=== PATIENT | female | born 1960 | race Caucasian/White ===

== ENCOUNTER 2020-05-28 08:44 | Outpatient (CLI) | payer OTHER, SELFPAY ==
--- NOTE | ~2020-05-28 | MM_ITS ---
EXAMINATION: MM screening [facility] w adelita HISTORY: Screening TECHNIQUE: Craniocaudal and mediolateral oblique 3-D tomosynthesis images were obtained and synthetic 2-D images were generated. CAD analysis was submitted and interpreted. COMPARISON: No prior mammogram is available for comparison at this institution. BREAST PARENCHYMAL COMPOSITION: FINDINGS: There is no evidence of suspicious mass, calcification, or architectural distortion to sugg est malignancy in either breast. There has been no suspicious interval change. IMPRESSION: 1. No mammographic evidence of malignancy. 2. Recommend routine screening mammography in one year. Reviewed, dictated and finalized at location A.
== END 2020-05-28 08:45 | disposition home or self-care (01) ==
LOC: ANHIMG 08:47
PROVIDERS: PCP Family Medicine; Visit Provider Family Medicine
DX: Z12.31 Encounter for screening mammogram for malignant neoplasm of breast (principal)
CPT/HCPCS: 77063; 77067

== ENCOUNTER 2021-06-09 08:04 | Outpatient (CLI) | payer OTHER, SELFPAY ==
--- NOTE | ~2021-06-09 | MM_ITS ---
EXAMINATION: MM screening [facility] BI w adelita HISTORY: Screening mammogram TECHNIQUE: Craniocaudal and mediolateral oblique 3-D tomosynthesis images were obtained and synthetic 2-D images were generated. CAD analysis was submitted and interpreted. COMPARISON: 05/28/2020 bilateral digital screening mammogram 05/17/2019 diagnostic right mammogram 05/11/2019, 01/26/2018 bilateral digital screening mammogram examinations BREAST PARENCHYMAL COMPOSITION: There are scattered areas of fibroglandular density. FINDINGS: Stable mild fibroglandular asymmetry. There is no evidence of suspicious mass, calcificatio n, or architectural distortion to suggest malignancy in either breast. There has been no suspicious i nterval change. IMPRESSION: 1. No mammographic evidence of malignancy. 2. Recommend routine screening mammography in one year. BI-RADS Category 2: Benign finding(s). Reviewed, dictated and finalized at location A.
== END 2021-06-09 08:05 | disposition home or self-care (01) ==
PROVIDERS: PCP Family Medicine; Visit Provider Physician Assistant
DX: Z12.31 Encounter for screening mammogram for malignant neoplasm of breast (principal)
CPT/HCPCS: 77063; 77067

== ENCOUNTER 2022-09-08 08:30 | Outpatient (CLI) | payer OTHER, SELFPAY ==
--- NOTE | ~2022-09-08 | MM_ITS ---
EXAMINATION: MM screening [facility] BI w adelita HISTORY: Screening mammogram TECHNIQUE: Craniocaudal and mediolateral oblique 3-D tomosynthesis images were obtained and synthetic 2-D images were generated. CAD analysis was submitted and interpreted. COMPARISON: 06/09/2021, 05/28/2020, 05/17/2019, 05/11/2019 BREAST PARENCHYMAL COMPOSITION: There are scattered areas of fibroglandular density. FINDINGS: No suspicious mass, calcification, or architectural distortion are identified in either reza ast to suggest malignancy. There has been no suspicious interval change. IMPRESSION: 1. No mammographic evidence of malignancy. 2. Recommend routine screening mammography in one year. BI-RADS Category 1: Negative Reviewed, dictated and finalized at location A. L PAINTER
== END 2022-09-08 08:31 | disposition home or self-care (01) ==
LOC: ANHIMG 08:31
PROVIDERS: PCP Family Medicine; Visit Provider Family Medicine
DX: Z12.31 Encounter for screening mammogram for malignant neoplasm of breast (principal)
CPT/HCPCS: 77063; 77067

== ENCOUNTER → 2022-10-13 13:45 | Outpatient (CLI) | payer OTHER, SELFPAY ==
--- NOTE | ~2022-10-13 | XR_ITS ---
EXAM: XR lumbar spine min 4V DATE: 10/13/2022 14:09 HISTORY: low back pain radiating down back of both legs . COMPARISON: None available. FINDINGS: Hypoplastic ribs at T12. 5 nonrib-bearing lumbar-type vertebral bodies. Partial sacralizat ion of L5. Pedicles intact. Normal vertebral body alignment. Vertebral body heights preserved. Disc s paces multilevel mild disc space narrowing and marginal osteophytosis. No pars defect. Multilevel fac et sclerosis and hypertrophy, worst at L4-5 and L5-S1. No fracture or dislocation. IMPRESSION: Partial sacralization of L5. Mild multilevel degenerative disc disease. Moderate lower roxy mbar facet arthropathy. Reviewed, dictated and finalized at location K. TREATING INSPECTOR IMPRESSION: Partial sacralization of L5. Mild multilevel degenerative disc dise ase. Moderate lower lumbar facet arthropathy.
== END ==
PROVIDERS: PCP Family Medicine; Visit Provider Family Medicine
DX: M51.36 Other intervertebral disc degeneration, lumbar region (principal)
CPT/HCPCS: 72110

== ENCOUNTER 2023-10-11 07:34 | Outpatient (CLI) | payer MEDICARE, SELFPAY ==
--- NOTE | ~2023-10-11 | MM_ITS ---
EXAMINATION: MM screening [facility] BI w adelita HISTORY: Screening TECHNIQUE: Craniocaudal and mediolateral oblique 3-D tomosynthesis images were obtained and synthetic 2-D images were generated. CAD analysis was submitted and interpreted. COMPARISON: Comparison to multiple prior studies sequentially, with oldest reviewed study dated 02/2018. BREAST PARENCHYMAL COMPOSITION: There are scattered areas of fibroglandular density. FINDINGS: Focal right breast asymmetry is unchanged from prior studies. There is no evidence of suspi cious mass, calcification, or architectural distortion to suggest malignancy in either breast. There has been no suspicious interval change. IMPRESSION: 1. No mammographic evidence of malignancy. 2. Recommend routine screening mammography in one year. BI-RADS Category 1: Negative Reviewed, dictated and finalized at location A. PICKER
== END 2023-10-11 07:35 | disposition home or self-care (01) ==
PROVIDERS: PCP Family Medicine; Visit Provider Family Medicine
DX: Z12.31 Encounter for screening mammogram for malignant neoplasm of breast (principal)
CPT/HCPCS: 77063; 77067

== ENCOUNTER 2024-07-26 09:52 | Outpatient (CLI) | payer MEDICARE, SELFPAY ==
[2024-07-26 12:59] LABS: Alanine Aminotransferase 25 U/L (6-35); Albumin Level 4.4 g/dL (3.5-5.1); Alkaline Phosphatase 69 U/L (38-126); Anion Gap 6 mmol/L (4-12); Aspartate Amino Transferase 41 U/L (14-36); Bilirubin,Total 0.9 mg/dL (0.2-1.3); Blood Urea Nitrogen 18 mg/dL (7-17); Calcium 9.5 mg/dL (8.4-10.2); Carbon Dioxide 30 mmol/L (22-30); Chloride 104 mmol/L (98-107); Cholesterol 220 mg/dL (0-200); Estimated Glomerular Filt Rate > 60; Glucose 94 mg/dL (65-110); HDL Direct 64 mg/dL; Potassium 4.6 mmol/L (3.4-5.0); Sodium 140 mmol/L (137-145); Triglycerides 82 mg/dL (<150)
[2024-07-26 13:10] LABS: LDL Cholesterol Direct 116 mg/dL
[2024-07-26 13:29] LABS: Thyroid Stimulating Hormone 0.604 uIU/mL (0.465-4.680)
== END 2024-07-26 09:53 | disposition home or self-care (01) ==
PROVIDERS: PCP Family Medicine; Visit Provider Student in an Organized Health Care Education/Training Program
DX: E03.9 Hypothyroidism, unspecified (principal)
CPT/HCPCS: 36415; 80053; 80061; 84443

== ENCOUNTER 2024-10-16 09:01 | Outpatient (CLI) | payer MEDICARE, SELFPAY ==
--- NOTE | ~2024-10-16 | DEXA_ITS ---
Bone Density Report Name: VALERIA CAM Age: 64 Sex: Female Ethnicity: White Date of : 1960 Indication: postmenopausal; screening for osteoporosis; Referring Provider: RODOLFO CHAO Study: Bone densitometry was performed. Exam Date: October 16, 2024 Accession number: [id number] Bone Density: Region BMD T-score Z-score Classification AP Spine(L1-L4) 1.214 1.5 3.4 Normal Femoral Neck (Left) 0.837 -0.1 1.5 Normal Total Hip (Left) 1.012 0.6 1.9 Normal Femoral Neck (Right) 0.826 -0.2 1.4 Normal Total Hip (Right) 0.916 -0.2 1.1 Normal Total Hip Mean 0.964 0.2 1.5 Normal World Health Organization criteria for BMD impression classify patients as: Normal (T-score at or above -1.0), Osteopenia (T-score between -1.0 and -2.5), or Osteoporosis (T-score at or below -2.5). 10-year Fracture Risk: FRAX not reported because: All T-scores for Spine Total, Hip Total, Femoral Neck at or above -1.0 Clinical Information Provided by Patient: Patient maximum height was 64.5 Menopause Age: 44 Drinks caffeinated beverages Onset of menses at age 11 Number of children 2 Impression: The patient has normal bone mass. Discussion: BONE DENSITY IS ABOVE THE MINIMUM DESIRABLE LEVEL AT ALL SKELETAL SITES TESTED. This patient?s bone mineral density is above the minimum desirable level (T-score -1.0 or better) at all sites measured. The patient should follow a healthful lifestyle (good nutrition with adequate calcium and vitamin D, and appropriate weight-bearing exercise). Follow-Up: Consider repeating this study in 5 years or sooner if there is some new clinical indication. Reported by: KARSTEN on 10/16/2024 9:48:00 AM. Reviewed, dictated and finalized at location A. [facility]
--- NOTE | ~2024-10-16 | MM_ITS ---
EXAMINATION: MM screening [facility] BI w adelita HISTORY: Screening mammogram TECHNIQUE: Craniocaudal and mediolateral oblique 3-D tomosynthesis images were obtained and synthetic 2-D images were generated. CAD analysis was submitted and interpreted. COMPARISON: 10/11/2023, 09/08/2022, 06/09/2021 BREAST PARENCHYMAL COMPOSITION:Not Dense. There are scattered areas of fibroglandular density. FINDINGS: No suspicious mass, calcification, or architectural distortion are identified in either reza ast to suggest malignancy. There has been no suspicious interval change. IMPRESSION: No mammographic evidence of malignancy. Recommend routine screening mammography in one year. BI-RADS Category 1: Negative Reviewed, dictated and finalized at location . L ARBITRATOR
--- OUTSIDE RECORDS SUMMARY | 2024-10-16 09:43 | XMS_ITS | Clinical Summary ---
Author Organization [facility] Address [address] [address] Care Team Providers Care Triple Drum Operator Name Role Phone Krystina Maria MD Primary Care Provider + Allergies Active Allergy Reactions Criticality Noted Date Comments Doxycycline Hives Medium 12/22/2021 Penicillins Other (See comments) High 12/22/2021 Throat swelled Medications sodium, potassium & mag sulfates (SUPREP BOWEL KIT) 17.5-3.13-1.6 gram recon solnIndications :Bowel Evacuation Take half of prep day before procedure at 6pm with clear liquids, take second half of prep day of procedure four hours prior to leaving home 2 Bottle 9 Active Additional Information Patient not taking.Reported on 12/22/2021 levothyroxine (SYNTHROID) 75 mcg tablet daily 3 9 Active Active Problems Problem Noted Date Diagnosed Date Encounter for screening colonoscopy 05/24/2019 Overview (05/24/2019): Added automatically from request for surgery [id number] Social History Tobacco Use Types Packs/Day Years Used Date Smoking Tobacco: Never Personal Safety Answer Date Recorded Getting School Help Needed Not on file 08/21 Comments No Sex and Gender Information Value Date Recorded Sex Assigned at Not on file 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 Gender Identity Not on file Sexual Orientation Not on file Obstetrics History Last Filed Vital Signs Vital Sign Reading Time Taken Comments Blood Pressure 144/81 12/22/2021 9:05 AM CDT Pulse 70 12/22/2021 9:05 AM CDT Temperature 37.1 C (98.8 F) 12/22/2021 9:05 AM CDT Respiratory Rate 16 12/22/2021 9:05 AM CDT Oxygen Saturation 98% 12/22/2021 9:05 AM CDT Inhaled Oxygen Concentration - - Weight 68.5 kg (151 lb) 12/22/2021 9:05 AM CDT Height 162.6 cm (5' 4 ) 12/22/2021 9:05 AM CDT Body Mass Index 25.92 12/22/2021 9:05 AM CDT Plan of Treatment Health Maintenance Due Date Last Done Comments Breast Cancer Screening-Mammogram 1960 Depression Screening 1960 Fall Risk Assessment 1960 Hepatitis C Screening 1960 Osteoporosis Screening-Bone Density Scan 1960 DTaP/Tdap/Td Vaccine (1 - Tdap) 1969 Hepatitis B Screening 1976 Pneumococcal vaccine 65+ (1 of 1 - PCV) 2008 Zoster Vaccine (2 of 2) 12/10/2021 10/15/2021 Well Visit 65+ 2023 Covid-19 Vaccine (4 - 2023-2 5 season) 2024 07/09/2021, 11/12/2020, 10/21/2020 Influenza Vaccine (#1) 2024 Colon Cancer Screening-Colonoscopy 06/14/20292018 Colon Cancer Screening-CT Colonography Discontinued 06/14/2019 Colon Cancer Screening-DNA Stool Discontinued 06/14/20 Colon Cancer Screening-FIT Discontinued 06/14/2019 Colon Cancer Screening-Sigmoidoscopy Discontinued 05/23 Procedures Procedure Name Priority Date/Time Associated Diagnosis Comments COLONOSCOPY 06/14/2019 10:15 AM CDT from Last 3 Months or Most Recently Relevant to Health Maintenance Results * COLONOSCOPY (06/14/2019 10:15 AM CDT) Anatomical Region Laterality Modality Other Narrative Procedure Note Oleksandr Collins MD - 06/14/2019 10:15 AM CDT ENDOSCOPY LAB Patient Name: Frances Mays Procedure Date: 06/14/2019 10:15AM Date of : 1960 Admit Type: Outpatient Age: 58 Gender: Female Attending MD: Oleksandr Collins M.D. Room: [facility] 02 Note Status: Finalized Procedure: Colonoscopy Indications: Screening for colorectal malignant neoplasm (last colonoscopy was 10 years ago) Providers: Oleksandr Collins M.D. Referring MD: Oleksandr Collins M.D. Medicines: Monitored Anesthesia Care Complications: No immediate complications. Estimated Blood Loss: Estimated blood loss: none. Procedure: Pre-Anesthesia Assessment: - Immediately prior to administration of medications,the patient was re-assessed for adequacy to receivesedatives. The benefits, risks and alternatives of the procedureand sedation were discussed and informed consent wasobtained. All questions were answered. Please refer to the signed informed consent document in the medical record. Thescope was passed under direct vision. The [id number] introduced through the anus and advanced to the cecum, identified by appendiceal orifice and ileocecal valve.The quality of the bowel preparation was evaluated usingthe BBPS ([place] Bowel Preparation Scale) with scores of: Right Colon = 3, Transverse Colon = 3 and Left Colon =3 (entire mucosa seen well with no residual staining,small fragments of stool or opaque liquid). The total BBPSscore equals 9. The bowel preparation used was SUPREP. Bowel prep was administered using a split dose. Findings: The perianal and digital rectal examinations were normal. A 3 mm polyp was found in the recto-sigmoid colon. The polyp was sessile. The polyp was removed with a hot snare. Resection andretrieval were complete. The exam was otherwise without abnormality. Impression: - One 3 mm polyp at the recto-sigmoid colon, removedwith a hot snare. Resected and retrieved. - The examination was otherwise normal. Recommendation: - Await pathology results. - Repeat colonoscopy in 10 years for surveillance. Oleksandr Collins MD Oleksandr Collins M.D. 06/14/2019 11:01:34 AM Number of Addenda: 0 Note Initiated On: 06/14/2019 10:15 AM Oleksandr Collins MD ENDOSCOPY PROCEDURES Fi nal Result from Last 3 Months or Most Recently Relevant to Health Maintenance Insurance [employer] [facility] [id number] Advance Directives For more information, please contact: [phone] * Full Code (Latest Code Status on File) Date Activated Date Inactivated Comments 06/14/2019 9:33 AM 06/14/2019 3:34 PM Care Teams Triple Drum Operator Relationship Specialty Start Date End Date Krystina Maria MD PCP - General 06/14/19
--- OUTSIDE RECORDS SUMMARY | 2024-10-16 09:43 | XMS_ITS | Referral Summary ---
Author Organization 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 Room: [facility] 02 Note Status: Finalized Procedure: Colonoscopy Indications: [...] Thescope was passed under direct vision. The [id number] introduced through the anus and advanced to the cecum, identified by appendiceal orifice and ileocecal valve.The quality of the bowel preparation was evaluated usingthe BBPS ([place] Bowel Preparation Scale) with scores of: Right [...] Most Recently Relevant to Health Maintenance Insurance [facility] [id number] Advance Directives For more information, please contact: [phone] * Full Code (Latest Code Status on File) Date Activated Date Inactivated Comments 06/14/2019 9:33 AM 06/14/2019 3:34 PM Care Teams Pricing Associate Relationship Specialty Start Date End Date Krystina Maria MD PCP - General 06/14/19
== END 2024-10-16 09:02 | disposition home or self-care (01) ==
PROVIDERS: PCP Family Medicine; Visit Provider Student in an Organized Health Care Education/Training Program
DX: Z12.31 Encounter for screening mammogram for malignant neoplasm of breast (principal); Z78.0 Asymptomatic menopausal state
CPT/HCPCS: 77063; 77067; 77080

== ENCOUNTER 2025-07-23 15:25 | Outpatient (CLI) | payer MEDICARE, SELFPAY ==
--- NOTE | ~2025-07-23 | CT_ITS ---
EXAMINATION: CT sinus wo con COMPARISON: None HISTORY: Chronic sinusitis TECHNIQUE: Axial images were obtained without IV contrast. Sagittal, coronal reconstruction images were obtained from the axial views. CT scan performed using dose optimization techniques including the following automated exposure control; adjustment of mA and/or kV; use of iterative reconstruction technique. Automatic exposure control was used to reduce radiation dose. Permanent radiation dose record is archived to PACS. FINDINGS: Visualized brain parenchyma optic globes and soft tissues are unremarkable. Nonspecific calcification noted in the tonsillar tissue. Frontal sinuses unremarkable. Minimal mucosal thickening in the ethmoidal air cells. Maxillary sinuses and sphenoid sinuses unremarkable. The ostiomeatal complexes are patent but narrowed on the left side. Nasal septum is deviated to the left with mild thickening of the turbinates and mild narrowing of the left nasal cavity. There is no osseous destruction or wall thickening identified. IMPRESSION: No significant sinusitis. Reviewed, dictated and finalized at location P. DOWN INSPECTOR IMPRESSION: No significant sinusitis.
== END 2025-07-23 15:26 | disposition home or self-care (01) ==
LOC: MICIMG 15:26
PROVIDERS: PCP Family Medicine; Visit Provider Family Medicine
DX: J32.9 Chronic sinusitis, unspecified (principal); R51.9 Headache, unspecified
CPT/HCPCS: 70486

== ENCOUNTER 2025-07-25 08:08 | Outpatient (CLI) | payer MEDICARE, SELFPAY ==
--- OUTSIDE RECORDS SUMMARY | 2025-07-25 08:17 | XMS_ITS | Clinical Summary ---
Author Organization [facility] Address [address] [place] [address] Care Team Providers Care Senior Project Controls Specialist Name Role Phone Krystina Maria MD Primary [...] Active Additional Information Patient not taking.Reported on 12/14/2024 levothyroxine (SYNTHROID) 75 mcg tablet daily 3 9 Active latanoprost (XALATAN) 0.005 % ophthalmic solution INSTILL 1 DROP IN BOTH EYES ONCE DAILY AT BEDTIME 5 Active Active Problems Problem Noted Date Diagnosed Date Encounter for screening colonoscopy 05/24/2019 Overview (05/24/2019): Added automatically from request for surgery [id number] Social History Tobacco Use Types Packs/Day Years Used Date Smoking Tobacco: Never Comments No Sex and Gender Information Value Date Recorded Sex Assigned at Not on file 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 Gender Identity Not on file Sexual Orientation Not on file Last Filed Vital Signs Vital Sign Reading Time Taken Comments Blood Pressure 126/80 12/14/2024 8:20 AM CDT Pulse 85 12/14/2024 8:20 AM CDT Temperature 36.8 C (98.2 F) 12/14/2024 8:20 AM CDT Respiratory Rate 18 12/14/2024 8:20 AM CDT Oxygen Saturation 98% 12/14/2024 8:20 AM CDT Inhaled Oxygen Concentration - - Weight 69.9 kg (154 lb) 12/14/2024 8:20 AM CDT Height 162.6 cm (5' 4) 12/22/2021 9:05 AM CDT Body Mass Index 26.43 12/22/2021 9:05 AM CDT Plan of Treatment [...] Visit 65+ 2023 Covid-19 Vaccine (4 - 2024-2 6 season) 2025 07/09/2021, 11/12/2020, 10/21/2020 Influenza Vaccine (#1) 2025 Colon Cancer Screening-Colonoscopy 06/14/20292018 Colon Cancer Screening-CT [...] Female Attending MD: Oleksandr Collins M.D. Room: [place] [id number] Note Status: Finalized Procedure: Colonoscopy Indications: Screening [...] Thescope was passed under direct vision. The [id number] introduced through the anus and advanced to the cecum, identified by appendiceal orifice and ileocecal valve.The quality of the bowel preparation was evaluated usingthe BBPS ([place] Bowel Preparation Scale) with scores of: Right [...] Most Recently Relevant to Health Maintenance Insurance [employer] [facility] MEDIC[facility] [employer] [facility] Address: [address] [address] [place] [address] [employer] [facility] [id number] [facility] MEDICARE ADVANTAGE Advance Directives For more information, please contact: [phone] * Full Code (Latest Code Status on File) Date Activated Date Inactivated Comments 06/14/2019 9:33 AM 06/14/2019 3:34 PM Care Teams Senior Project Controls Specialist Relationship Specialty Start Date End Date Krystina Maria MD PCP - General 06/14/19
[2025-07-25 14:23] LABS: Hematocrit 42.2 % (37.0-47.0); Hemoglobin 13.8 g/dL (12.0-15.0); Immature Granulocyte Percent A 0.2 % (0-0.5); Lymphocytes Absolute Auto 1.77 K/mm3 (0.9-3.2); Mean Corpuscular HGB Conc 32.7 g/dl (32-36); Mean Corpuscular Hemoglobin 31.1 pg (26-34); Mean Corpuscular Volume 95.0 fl (80-100); Nucleated Red Blood Cells Absolute Auto 0.000 K/mm3 (0.0-0.012); Nucleated Red Blood Cells Perc 0.0 % (0.0-0.2); Platelet Count Result 330 k/mm3 (150-375); Red Blood Count 4.44 M/mm3 (4.2-5.4); White Blood Count 5.6 K/mm3 (4.5-10.0)
[2025-07-25 14:29] LABS: Alanine Aminotransferase 22 U/L (6-35); Albumin Level 4.2 g/dL (3.5-5.1); Alkaline Phosphatase 64 U/L (38-126); Anion Gap 4 mmol/L (4-12); Aspartate Amino Transferase 33 U/L (14-36); Bilirubin,Total 0.8 mg/dL (0.2-1.3); Blood Urea Nitrogen 19 mg/dL (7-17); Calcium 9.5 mg/dL (8.4-10.2); Carbon Dioxide 25 mmol/L (22-30); Chloride 108 mmol/L (98-107); Cholesterol 213 mg/dL (0-200); Estimated Glomerular Filt Rate > 60; Glucose 88 mg/dL (65-110); HDL Direct 60 mg/dL; Potassium 4.2 mmol/L (3.4-5.0); Sodium 137 mmol/L (137-145); Total Protein 7.7 g/dL (6.3-8.2); Triglycerides 83 mg/dL (<150)
[2025-07-25 15:05] LABS: Thyroid Stimulating Hormone 0.731 uIU/mL (0.465-4.680)
== END 2025-07-25 08:09 | disposition home or self-care (01) ==
LOC: ANHGOSHLAB 08:09
PROVIDERS: PCP Family Medicine; Visit Provider Family Medicine
DX: E03.9 Hypothyroidism, unspecified (principal); Z00.00 Encounter for general adult medical examination without abnormal findings
CPT/HCPCS: 36415; 80053; 80061; 84443; 85025

== ENCOUNTER 2025-08-08 09:33 | Outpatient (CLI) | payer MEDICARE, SELFPAY ==
--- NOTE | ~2025-08-08 | XR_ITS ---
EXAMINATION: XR knee LT 3V, 08/08/2025 9:46 DREDGING INSPECTOR HISTORY: M25.562 - Pain in left knee COMPARISON: No comparisons available. Findings: No acute fracture or malalignment. Moderate tricompartmental degenerative changes Soft tissues unremarkable. Impression: No acute fracture or malalignment. Reviewed, dictated and finalized at location P. GING INSPECTOR Impression: No acute fracture or malalignment.
== END 2025-08-08 09:34 | disposition home or self-care (01) ==
LOC: GOSHIMG 09:35
PROVIDERS: PCP Student in an Organized Health Care Education/Training Program; Visit Provider Student in an Organized Health Care Education/Training Program
DX: M25.562 Pain in left knee (principal)
CPT/HCPCS: 73562